=== PATIENT | female | born 1980 | race Native Hawaiian/Other Pacific Islander ===

== ENCOUNTER 2019-01-19 16:11 | Emergency (ER) | payer OTHER ==
[~2019-01-19] VITALS: Ht 180.3 cm; Wt 63.5 kg
[2019-01-19 16:11] VITALS: BP 136/87; TEMP 97.2
== END 2019-01-19 19:05 | disposition home or self-care (01) ==
LOC: ED 16:11
DX: M79.646 Pain in unspecified finger(s) (principal); W23.0XXA Caught, crushed, jammed, or pinched between moving objects, initial encounter; Y92.89 Other specified places as the place of occurrence of the external cause
CPT/HCPCS: 99281